=== PATIENT | male | born 1980 | race African-American/Black ===

== ENCOUNTER 2018-09-21 22:36 | Emergency (ER) | payer SELFPAY ==
[~2018-09-21] VITALS: Ht 170.2 cm; Wt 82.0 kg
[~2018-09-21 22:36] MED LIST: VENTOLIN HFA IN
[2018-09-21 23:13] VITALS: BP 152/102
== END 2018-09-21 23:24 | disposition home or self-care (01) | DRG 605 ==
LOC: ED 22:36
PROC: 0HQFXZZ Repair Right Hand Skin, External Approach (ICD-10-PCS; principal; 2018-09-21)
DX: S61.212A Laceration without foreign body of right middle finger without damage to nail, initial encounter (principal); W26.9XXA Contact with unspecified sharp object(s), initial encounter; Y92.89 Other specified places as the place of occurrence of the external cause; Y99.0 Civilian activity done for income or pay

== ENCOUNTER 2018-09-25 14:18 | Emergency (ER) | payer SELFPAY ==
[~2018-09-25] VITALS: Ht 170.2 cm; Wt 86.4 kg
[2018-09-25 18:00] VITALS: BP 136/90
== END 2018-09-25 18:05 | disposition home or self-care (01) | DRG 950 ==
LOC: ED 14:18
DX: S61.212D Laceration without foreign body of right middle finger without damage to nail, subsequent encounter (principal)